=== PATIENT | female | born 1970 | race Caucasian/White ===

== ENCOUNTER 2017-06-20 05:49 | Inpatient (IN) | payer BC, OTHER ==
[~2017-06-20] VITALS: Ht 157.5 cm; Wt 68.2 kg
[2017-06-20] VITALS (22 sets, daily range): BP systolic 88–141; BP diastolic 48–80; PULSE 74–88; RESP 13–26; Ht 157.5 cm; Wt 68.2 kg
[2017-06-20] MEDS: LACTATED RINGER'S 1,000 ML IV* SCH (06:30)
[2017-06-20 06:47] LABS: BASOPHIL # 0.1 10^3/ul (0.0-0.1); BASOPHILS % 0.8 % (0.0-2.0); EOSINOPHILS # 0.1 10^3/ul (0.0-0.5); EOSINOPHILS % 0.9 % (0.0-7.0); LYMPHOCYTES # 2.7 10^3/ul (0.8-2.9); LYMPHOCYTES % 30.1 % (15.0-51.0); MEAN CORPUSCULAR HEMOGLOBIN 25.8 pg (29.0-33.0); MEAN CORPUSCULAR HGB CONC 32.4 g/dl (32.0-37.0); MEAN CORPUSCULAR VOLUME 79.4 fl (82.0-101.0); MEAN PLATELET VOLUME 9.5 fl (7.4-10.4); MONOCYTE # 0.6 10^3/ul (0.3-0.9); MONOCYTES % 6.9 % (0.0-11.0); NEUTROPHILS % 60.7 % (39.0-77.0); PLATELET COUNT 392 10^3/UL (140-415); RED BLOOD COUNT 4.66 10^6/ul (4.20-5.40); WHITE BLOOD COUNT 8.8 10^3/ul (4.8-10.8)
[2017-06-20 06:48] LABS: INR 0.96; PROTIME 12.8 Sec (12.2-14.2)
[2017-06-20 06:51] LABS: PARTIAL THROMBOPLASTIN TIME 35.1 Sec (25.0-35.0)
[2017-06-20 07:00] LABS: ALBUMIN/GLOBULIN RATIO 1.33; BILIRUBIN,INDIRECT 0.2 mg/dl (0-1.1); BILIRUBIN,TOTAL 0.2 mg/dl (0.2-1.3)
[2017-06-20] MEDS ORDERED: THROMBIN 5000 UNIT VIAL ONE (07:03)
[2017-06-20] MEDS ORDERED: VASOPRESSIN 20 UNITS INJ ONE (07:04)
[2017-06-20] MEDS ORDERED: METHYLENE BLUE 1% 10 ML INJ ONE (07:05)
[2017-06-20 07:07] LABS: CALCIUM 9.5 mg/dl (8.4-10.2); CREATININE 0.61 mg/dl (0.44-1.00)
[2017-06-20 07:09] LABS: POTASSIUM 3.4 mmol/L (3.5-5.1)
[2017-06-20] MEDS ORDERED: LIDOCAINE 2% (SDV) 5 ML INJ ONE (07:34)
[2017-06-20] MEDS ORDERED: CEFAZOLIN 1 GM INJ ONE (07:34)
[2017-06-20] MEDS ORDERED: FENTAnyl 50 MCG/ML VIAL ONE ×2 (07:34→08:49)
[2017-06-20] MEDS ORDERED: SUCCINYLCHOLINE CHLORIDE 100 MG/5 ML SYG IV ONE (07:34)
[2017-06-20] MEDS ORDERED: ROCURONIUM 50 MG INJ ONE (07:34)
[2017-06-20] MEDS ORDERED: MIDAZOLAM 1 MG/ML 2 ML INJ ONE (07:34)
[2017-06-20] MEDS ORDERED: PROPOFOL 20 ML ONE (07:34)
[2017-06-20] MEDS ORDERED: METOCLOPRAMIDE 10 MG INJ ONE (08:20)
[2017-06-20] MEDS ORDERED: ONDANSETRON 4 MG INJ ONE (08:20)
[2017-06-20] MEDS ORDERED: DEXAMETHASONE 4 MG/ML 1 ML INJ ONE (08:20)
[2017-06-20] MEDS ORDERED: ACETAMINOPHEN 1000MG/100ML IV 100 ML ONE (09:00)
[2017-06-20] MEDS ORDERED: KETOROLAC 30 MG INJ ONE (09:17)
[2017-06-20] MEDS ORDERED: NEOSTIGMINE 3 MG/3 ML SYRINGE ONE (09:18)
[2017-06-20] MEDS ORDERED: GLYCOPYRROLATE 0.4 MG INJ ONE (09:18)
[2017-06-20] MEDS ORDERED: PROCHLORPERAZINE 10 MG INJ IV PRN (10:00)
[2017-06-20] MEDS ORDERED: LABETALOL HCL 20MG INJ IV PRN (10:00)
[2017-06-20] MEDS ORDERED: oxyCODONE 5 MG TAB PO PRN ×2 (10:00)
[2017-06-20] MEDS ORDERED: DIPHENHYDRAMINE 50 MG INJ IV PRN ×2 (10:00→10:30)
[2017-06-20] MEDS ORDERED: FENTAnyl 50 MCG/ML VIAL IV PRN (10:00)
[2017-06-20] MEDS ORDERED: MEPERIDINE 25 MG INJ IV PRN (10:00)
[2017-06-20] MEDS ORDERED: ONDANSETRON 4 MG INJ IV PRN ×2 (10:00→10:30)
[2017-06-20] MEDS ORDERED: HYDROmorphONE (0.2 MG/ML) 10ML SYG IV PRN ×2 (10:00)
[2017-06-20] MEDS ORDERED: hydrALAzine 20 MG INJ IV PRN (10:00)
[2017-06-20] MEDS: LACTATED RINGER'S 1,000 ML IV SCH ×2 (10:18→20:18)
--- NOTE | 2017-06-20 10:18 | SIPON ---
Date/Time of Note Date/Time of Note DATE: 06/20/17 TIME: 10:15 Operative Report Preoperative Diagnosis ovarian mass Postoperative Diagnosis right ovarian dermoid cyst Operation/Procedure Performed Laparoscopy, dissection of right ureter, right salpingo-oopherectomy Surgeon: JAGDISH MATHIS MD Co-Surgeon: MARIAJOSE GARCIA MD Anesthesia Type: general Estimated Blood Loss: minimal Transfusion Required: no Specimens right ovary and Fallopian tube Grafts/Implants: none Complications: no JAGDISH MATHIS MD Jun 20, 2017 10:18
[2017-06-20] MEDS: KETOROLAC 30 MG INJ IV PRN ×2 (13:55→19:53)
[2017-06-20] MEDS: OXYCODONE/ACETAMINOPHEN (5/325) TAB PO PRN ×2 (15:35→21:14)
--- NOTE | 2017-06-20 18:09 | RADRPT ---
Vent Rate: 73 bpm RR Interval: 0 msec CA Interval: 122 msec QRS Duration: 86 msec QT Interval: 420 msec QTC Interval: 462 msec P-R-T [place]: 28 - 78 - 54 degrees Normal sinus rhythm Normal ECG Electronically Signed By: Maciel Brewster [id number]
[2017-06-21 00:28] VITALS: BP 100/56; RESP 20
--- NOTE | 2017-06-21 00:54 | OPR ---
DATE OF OPERATION: 06/20/2017 PREOPERATIVE DIAGNOSIS: Ovarian mass. POSTOPERATIVE DIAGNOSIS: Right ovarian dermoid cyst. OPERATION PERFORMED: Laparoscopy, right salpingo-oophorectomy. Right ureteral dissection dictated as a separate procedure by Dr. Sagastume. SURGEON: Stiven Crooks MD INTRAOPERATIVE SANITATION TECHNICIAN: Amaury Sagastume MD ANESTHESIA: General. ANESTHESIOLOGIST: . OPERATIVE PROCEDURE: Patient was taken to the operating room and placed on the operating table. After adequate general anesthesia was given, the patient was placed in dorsal lithotomy position. The area was prepared and draped in the usual manner. A 5-mm trocar was placed periumbilically without incident, and the abdomen was insufflated to 15 mmHg. We then insufflated and placed two 5-mm trocars laterally at the umbilical level under direct visualization without incidence or complication. The pelvic area was explored. The uterus was noted to be normal in size. There was a 6-cm mass in the right ovary. The left ovary was noted to have physiologic cyst. Decision was made to go on with right salpingo-oophorectomy. At this time, I requested that Dr. Sagastume perform a right ureteral dissection as a separate procedure so that laparoscopic right salpingo-oophorectomy could be completed laparoscopically, with minimal risk of a complication of a urinary injury and to avoid the need to convert to an open one. After the right ureteral dissection was performed by Dr. Sagastume, the right ureter could be visualized throughout the procedure. The right utero-ovarian ligament was transected with the Gyrus bipolar cutting forceps. An incision was made in the suprapubic area, and a 12-mm trocar was placed. Specimen of right ovary and mass and fallopian tube were placed in Endo pouch and removed through the suprapubic incision. An intraoperative Pathology consultation was obtained, and the specimen was noted to be dermoid cyst. Adequate hemostasis was assured. After irrigating and assuring hemostasis by visualization per laparoscope, the 12- mm trocar was removed, and the fascia was closed with 0 Vicryl using an EndoClose device. The gas was removed, and the skin of all sites was closed with a 5-0 Monocryl suture. Estimated blood loss was 10 mL. Patient tolerated the procedure well. Patient was awakened from anesthesia and transferred to recovery in stable condition. All counts were correct. Dictated By: Stiven Crooks MD /kevin/cheyenne /Document#: [id number]
--- NOTE | 2017-06-21 01:08 | PREOPHP ---
DATE OF ADMISSION: 06/20/2017 HISTORY OF PRESENT ILLNESS: A 47-year-old female, 2, para 2, last menstrual period 06/10/2017 who is admitted due to history of ovarian mass. PAST MEDICAL HISTORY: Unremarkable. PAST SURGICAL HISTORY: Laparoscopic cholecystectomy. ALLERGIES: NO KNOWN ALLERGIES. FAMILY HISTORY: Noncontributory. PHYSICAL EXAMINATION: VITAL SIGNS: The patient is afebrile. Vital signs stable. HEENT: Examination within normal limits.. NECK: Examination within normal limits. CHEST: Examination within normal limits. ABDOMEN: Soft, nontender, and nondistended. PELVIC: Exam normal. EXTREMITIES: Exam within normal limits. NEUROLOGIC: Exam within normal limits. IMPRESSION: Ovarian mass. PLAN: Laparoscopy, oophorectomy, possible surgical staging. The risks, benefits, and alternatives of the procedures were explained to the patient. The patient states she understood and gave informed consent for the procedures. Dictated By: Stiven Crooks MD /kevin/abdulaziz /Document#: [id number]
[2017-06-21] MEDS: OXYCODONE/ACETAMINOPHEN (5/325) TAB PO PRN (04:58)
[2017-06-21 05:16] VITALS: BP 104/55; PULSE 78; RESP 18
[2017-06-21 05:28] LABS: BASOPHILS % 0.2 % (0.0-2.0); HEMATOCRIT 35.9 % (37.0-47.0); HEMOGLOBIN 11.6 g/dl (12.0-16.0); LYMPHOCYTES # 2.5 10^3/ul (0.8-2.9); LYMPHOCYTES % 13.8 % (15.0-51.0); MEAN CORPUSCULAR HEMOGLOBIN 25.5 pg (29.0-33.0); MEAN CORPUSCULAR HGB CONC 32.3 g/dl (32.0-37.0); MEAN CORPUSCULAR VOLUME 78.9 fl (82.0-101.0); MEAN PLATELET VOLUME 9.6 fl (7.4-10.4); MONOCYTE # 1.4 10^3/ul (0.3-0.9); MONOCYTES % 7.4 % (0.0-11.0); NEUTROPHILS % 77.9 % (39.0-77.0); PLATELET COUNT 387 10^3/UL (140-415); RED BLOOD COUNT 4.55 10^6/ul (4.20-5.40); WHITE BLOOD COUNT 18.5 10^3/ul (4.8-10.8)
[2017-06-21] MEDS: LACTATED RINGER'S 1,000 ML IV SCH (06:18)
[2017-06-21] MEDS: LACTATED RINGER'S 1,000 ML IV* SCH (06:30)
[2017-06-21 08:05] VITALS: BP 102/59; RESP 18
--- NOTE | 2017-06-21 12:47 | DS ---
Date/Time of Note Date/Time of Note DATE: 06/21/17 TIME: 12:44 Discharge Summary Admission/Discharge Info Admit Date/Time Jun 20, 2017 at 05:49 Discharge Date/Time Discharge Diagnosis right ovarian dermoid cyst Patient Condition: Stable Procedures Laparoscopy, right salpingo oopherectomy Hx of Present Illness ovarian mass Hospital Course post op course uneventful Follow-up Plan in 2 weeks Primary Care Provider Aníbal Dsouza Time spent on discharge: < 30 minutes Pending Labs Laboratory Tests Test 06/21/17 04:46 06/21/17 06:29 White Blood Count 18.510^3/ul (4.8-10.8) Red Blood Count 4.5510^6/ul (4.20-5.40) Hemoglobin 11.6g/dl (12.0-16.0) Hematocrit 35.9% (37.0-47.0) Mean Corpuscular Volume 78.9fl (82.0-101.0) Mean Corpuscular Hemoglobin 25.5pg (29.0-33.0) Mean Corpuscular Hemoglobin Concent 32.3g/dl (32.0-37.0) Red Cell Distribution Width 15.0% (11.5-14.5) Platelet Count 12467^3/UL (140-415) Mean Platelet Volume 9.6fl (7.4-10.4) Neutrophils % 77.9% (39.0-77.0) Lymphocytes % 13.8% (15.0-51.0) Monocytes % 7.4% (0.0-11.0) Eosinophils % 0.0% (0.0-7.0) Basophils % 0.2% (0.0-2.0) Nucleated Red Blood Cells % 0.0/100WBC (0.0-0.0) Neutrophils # (Manual) 14.410^3/ul (1.7-7.5) Lymphocytes # 2.510^3/ul (0.8-2.9) Monocytes # 1.410^3/ul (0.3-0.9) Eosinophils # 0.010^3/ul (0.0-0.5) Basophils # 0.010^3/ul (0.0-0.1) Nucleated Red Blood Cells # 0.010^3/ul (0.0-0.0) Lab Scanned Report [id number] JAGDISH MATHIS MD Jun 21, 2017 12:47
[2017-06-21] MEDS: KETOROLAC 30 MG INJ IV PRN (12:55)
--- NOTE | 2017-06-25 20:33 | OPR ---
Date/Time of Note Date/Time of Note DATE: 06/25/17 TIME: 20:31 Operative Report Free Text/Dictation OPERATIVE REPORT [facility] Name: Betsy Mccullough Medical Date: 02/03/17 Preoperative Diagnosis: Right adnexal mass Postoperative Diagnosis: 1- Same with pathology pending; benign 2- Pelvic adhesions with retroperitoneal distortion; ureteral stricture Procedures: 1- Right ureteral dissection with repositioning 2- Enterolysis 3- Laparoscopic right salpingoophorectomy (dictated as a separate procedure by Dr. Crooks) Anesthesia: General Indications for Procedure The patient was a 47- year old female with a 4-5 cm complex cystic right adnexal mass who was brought to the operating room to perform a laparoscopic right salpingoophorectomy. I was present as an pharmacy innovation assistant and possible mergers and acquisitions consultant as needed, as Dr. Crooks was the primary surgeon. Findings and Summary After exploration we noted a 5-6 cm complex pelvic mass densely adherent to the pelvic sidewall and therefore and therefore my opinion was requested, and I suggested ureteral identification retroperitoneally was appropriate to minimize risk of complication. I was requested that a ureteral dissection and repositioning be performed. The Laparoscopic USO was then completed uneventfully by Dr. Crooks without incident. Procedure: Name: Betsy Mccullough [facility] After being prepped and draped in the usual manner a 5-millimeter trocar was placed cephlad to the umbilicus without incident. Subsequently, the abdomen was insufflated to 15 mm Hg and the patient had placement of two 5 millimeter trocars laterally and a 12 millimeter trocar suprapubically. At this time, the pelvis was thoroughly inspected and we observed a 4-5cm right complex cystic adnexal mass adherent to the sidewall, with distortion of the ureteral anatomy. As the adnexia was adherent to the sidewall my opinion was requested and I suggested ureteral identification retroperitoneally was appropriate to minimize risk of complication. It was requested by Dr. Crooks that I perform a ureteral dissection with repositioning, as a separate procedure, so that the needed procedure (laparoscopic RSO) could be completed without complication. Hence the ureteral dissection with repositioning was undertaken. The peritoneum near the round ligament was opened with a Thunderbeat and Omni and the retroperitoneum opened parallel to the infundibulo-pelvic (IP) ligament with the same devise being assured of hemostasis. A fan retractor was placed in the retroperitoneum through the suprapubic catheter for exposure. The ureter was identified, and noted to be adherent to the pelvic peritoneum near adjacent adnexia and associated pathology. The ureter was dissected away from the peritoneum with adjacent adnexia and repositioned with great care using the endo -dissector and the Omni bluntly with the Gyrus bipolar cutting forceps and Omni for hemostasis and ureteral dissection with repositioning with the ureter visualized. This process was carried out throughout the ureteral length in the pelvis and it peristalsed normally once repositioned and lateralized. Additional pelvic adhesions were lysed sharply and with the Omni as needed. The laparoscopic procedure as planned was then completed by Dr. Crooks uneventfully, and a minilaparotomy used. A negative on frozen section was obtained. After irrigating and assuring hemostasis the 12-millimeter trocar was removed and the fascia was closed with 0-vicryl using an endo-close devise. The gas was removed and the skin of all sites then closed with 5-0 [place] for the small trocar sites and subcuticular 5-0 Monocryl suture for the Name: Betsy Mccullough [facility] minilaparotomy to remove the mass. The EBL was approximately 50 cc and the patient tolerated the procedure well and left the OR in good condition. Mariajose Sagastume M.D. Surgeon: JAGDISH CROOKS MD [employer] Laboratory Technician: MARIAJOSE SAGASTUME MD Anesthesia Type: general Estimated Blood Loss: minimal Transfusion Required: no Complications: no MARIAJOSE SAGASTUME MD Jun 25, 2017 20:33
== END 2017-06-21 13:53 | disposition home or self-care (01) | DRG 743 ==
LOC: REC 05:49 → MS1 10:50
PROVIDERS: ADMIT Obstetrics & Gynecology; ATTEND Obstetrics & Gynecology
PROC: 0UT04ZZ Resection of Right Ovary, Percutaneous Endoscopic Approach (ICD-10-PCS; 2017-06-20)
PROC: 0TS64ZZ Reposition Right Ureter, Percutaneous Endoscopic Approach (ICD-10-PCS; 2017-06-20)
PROC: 0UT54ZZ Resection of Right Fallopian Tube, Percutaneous Endoscopic Approach (ICD-10-PCS; principal; 2017-06-20 07:30)
DX: D27.0 Benign neoplasm of right ovary (principal); N13.5 Crossing vessel and stricture of ureter without hydronephrosis
CPT/HCPCS: 80053; 85025; 85610; 85730; 86850; 86900; 86901; 88305; 93005; J0131; J0690; J1100; J1170; J1885; J2250; J2405; J2710; J2765; J3010; J7120; J7999